=== PATIENT | female | born 1955 | race Caucasian/White ===

== ENCOUNTER 2017-05-30 16:37 | Inpatient (IN) | payer OTHER ==
[~2017-05-30] VITALS: Ht 157.4 cm; Wt 90.7 kg
--- NOTE | ~2017-05-30 | PR ---
[place], [place] PROGRESS NOTE NAME: ANTOINETTE MILLER UNIT #: [id number] ROOM: 310 DOCTOR: PINKY MÉNDEZ MD BIRTHDATE: [birth year] DOS: 06/02/2017 CHIEF COMPLAINT: "I had a moment where I totally panicked, I was so worried about my daughter, I didn't know what to do." SUMMARY OF THE VISIT: The patient was interviewed in the dining area where she was eating. She stopped and engaged in conversation once again. She notes that she is having good and bad moments. The good seems to be steadily out growing the bad. However, she said she had a full blown panic attack in the middle of the evening when she got suddenly fixated on her daughter and was fearful that something had happened to her. She became so anxious she had to get her on the phone and even after talking to her; it did not console her mind. She had a little bit more difficulty sleeping last night, but overall does seem to be trending toward improvement with the new medication. MENTAL STATUS: She is alert and oriented. Mood does seem to be still depressed with anxious overtones, but she is improving. There is no gross psychosis. Memory is intact. PLAN: I will give her another 24 hours to adjust to these medicines before considering adjusting of the Vraylar any further, engage in individual and farr milieu activity with the plan to return home or to the least restrictive environment when psychiatrically stable. PINKY MÉNDEZ MD CM:PNTRANS [phone] PINKY MÉNDEZ MD 06/02/1719 interface
--- NOTE | ~2017-05-30 | PR ---
[place], [place] PROGRESS NOTE NAME: ANTOINETTE MILLER UNIT #: [id number] ROOM: 310 DOCTOR: PINKY MÉNDEZ MD BIRTHDATE: [birth year] DOS: 06/01/2017 CHIEF COMPLAINT: "I felt like the veil lifted but it came back again." SUMMARY OF THE VISIT: The patient was interviewed in her room. She was sitting on the bed and she engaged readily in conversation. She reports that she does feel dramatically better since yesterday and that the medication changes that I made were positive. She felt like the bill lifted when she woke up and she was a new person at least until after breakfast when she felt a little bit more down in the dumps and sad and was fearful that the depression really is not going to ever get better. She convincingly denies medication side effects, stating that she has tolerated the medicines well. She was a little hesitant when I made to switch off of the Stelazine to the Vraylar, but I reiterated the differences between the medicines and what I was hoping to achieve and she nodded in approval. MENTAL STATUS: She is alert and oriented. Mood does seem to be trending towards euthymia. Affect is more appropriate. There are no symptoms of hypomania or nathaly. There are no overt auditory or visual hallucinations. No delusions, no paranoia. Short, intermediate, and long-term memory are intact. PLAN: I will increase the Vraylar from 1.5-3 mg at bedtime. Continue the Cymbalta and the Xanax, continue to engage in individual and farr milieu activity with the plan to return to the least restrictive environment when stable. PINKY MÉNDEZ MD CM:PNTRANS 8 [phone] PINKY MÉNDEZ MD 06/01/17929 interface
--- NOTE | ~2017-05-30 | DS ---
[place], [place] DISCHARGE SUMMARY NAME: [id number] UN[facility] #: [id number] ROOM: 310 DOCTOR: PINKY MÉNDEZ MD BIRTHDATE: [birth year] DOS: 06/06/2017 CHIEF COMPLAINT: "I don't think I am ever going to get well again." HISTORY OF PRESENT ILLNESS: This is a 61-year-old white female known to me from her previous outpatient work in [place], [place] as well as a consult at [facility]. The patient has been finding herself increasingly more depressed and anxious. One of the major triggers is the fact that her ex- to whom she had been for 21 years, suddenly. She reports that after this, she just fell into a deep depression. She was not continuity disturbance, gericare aide awakening, anergia, anhedonia, hopeless, helpless feelings, crying spells, and inability to cope. Additionally, her outpatient nurse practitioner attempted to switch her unsuccessfully from Xanax to Klonopin, which caused her anxiety level to raise very high. I had tried a similar attempt when I first met the patient and it too was met with worsening of her symptomatology. She was admitted now to rule out organic factors and attempt to stabilize on medication, returning home when stable. PAST MEDICAL HISTORY: Remarkable for asthma, hypertension, GERD, hyperlipidemia, hypothyroidism, neuropathy and obesity. SUMMARY OF HOSPITAL COURSE: The patient was admitted to the unit where her vitamin D level was found to be low on admission screening laboratory examinations at 15.7. She was started on vitamin D 50,000 international units weekly. Additionally, her Cymbalta, which was at 60 mg a day, was increased to 90 and ultimately to 60 mg twice daily. It was felt that the Stelazine that she was on for anxiety was no longer beneficial and in fact was causing both upper and lower extremity tremor. Stelazine was discontinued in lieu of Vraylar, which was started at 1.5 mg at bedtime. It was increased to 3 mg at bedtime and maintained there, but then she continued to complain of increased mood lability, depression and poor sleep. Ultimately, the Vraylar was maximized to its total highest dose of 6 mg at bedtime with good results. Rozerem was added as a nonaddicting sleep aid later in her stay. With this combination of medications, the patient returned to baseline. She was sleeping through the night. She was waking up refreshed. She was engaging in individual and farr milieu activities and interacting appropriately both with staff and other patients. She convincingly denied medication side effects. She convincingly denied suicidal thoughts, homicidal thoughts or any self-injurious thoughts as well as denying sedation, somnolence, extrapyramidal symptoms or tardive dyskinesia. The patient had improved sufficiently to return home with her daughter. She will have followup then with Jean[facility]. MENTAL STATUS AT DISCHARGE: The patient is alert and oriented to person, place, and time. Mood was euthymic. Affect appropriate. There was no symptom suggestive of hypomania or nathaly. There were no overt auditory or visual hallucinations. No delusions, no paranoia. Short, intermediate, and long-term memory for the most part were intact. FINAL DIAGNOSES: Bipolar type 2 and panic disorder along with borderline [place], [place] DISCHARGE SUMMARY NAME: ANTOINETTE MILLER [facility] #: [id number] UNIT #: [id number] ROOM: 310 DOCTOR: PINKY MÉNDEZ MD BIRTHDATE: [birth year] personality disorder. PLAN: The patient's prescriptions have been printed and will be sent with her. She is returning home with her daughter. She will have followup with Jeaneth Bhatti at [facility]. PINKY MÉNDEZ MD CM:DISCHFLORIDALMA [id number] PINKY MÉNDEZ MD 06/06/17 1232 interface
--- NOTE | ~2017-05-30 | PR ---
[place], [place] PROGRESS NOTE NAME: ANTOINETTE MILLER UNIT #: [id number] ROOM: 310 DOCTOR: PINKY MÉNDEZ MD BIRTHDATE: [birth year] DOS: 06/05/2017 CHIEF COMPLAINT: "I am feeling better, but I didn't sleep last night." SUMMARY OF THE VISIT: The patient was interviewed in her room where she was sitting on the bed. She engaged readily in conversation and did report that she tolerated the increase in the Vraylar well. She did not sleep well at night, but does state that she is feeling better from a mood perspective. She has also noted that the tremor in her upper and lower extremities that was so prominent while on the Stelazine has lessened considerably. She did request something as a sleep aid. She began to process with me discharge plans and does seem to be trending in an improved direction. MENTAL STATUS: She is alert and oriented. Mood does seem to be strongly trending towards euthymia. Affect is much more appropriate. There is no symptom suggestive of nathaly or hypomania. There are no overt auditory or visual hallucinations. No delusions, no paranoia. Short, intermediate and long-term memories are fully intact. PLAN: I will add Rozerem 8 mg at bedtime as a non-addictive sleep aid. We will continue her current psychotropic regimen, continue to engage her in individual and farr milieu activity with the ultimate plan to discharge back to the community and have followup at [facility] with Caitlin Bhatti. PINKY MÉNDEZ MD CM:PNTRANS [phone] PINKY MÉNDEZ MD 06/05/17 1025 interface
--- NOTE | ~2017-05-30 | WRIGHTHP ---
[place], [place] PATIENT HISTORY AND PHYSICAL EXAM NAME: ANTOINETTE MILLER UNIT #: [id number] ROOM: 310 DOCTOR: PINKY MÉNDEZ MD BIRTHDATE: [birth year] DOS: 05/30/2017 CHIEF COMPLAINT: "I don't think I am ever going to get well again." HISTORY OF PRESENT ILLNESS: This is a 61-year-old white female known to me from previous outpatient work in [place], [place]. She presented from [facility] where she presented with a complaint of increased depression with fleeting suicidal ideas. The patient has been decompensating lately, made worse by the fact that her ex- to whom she had been for 21 years suddenly. She endorsed multiple neurovegetative symptoms including poor sleep and appetite, anergia, anhedonia, hopeless, helpless feelings, crying spells, and inability to cope. Most recently, her outpatient psychiatric provider, a nurse practitioner at [facility], confronted her on her benzodiazepine use and abuse. She made an attempt to switch the patient from Xanax to Klonopin, which per the patient's report was a devastating switch. She noticed that her anxiety level peaked and she was not able to function. This ultimately led to a hospitalization at [facility] where I did have an opportunity to see her. I had once before in the distant past tried to do a similar switch and the results were very unsuccessful. She is very much Xanax dependence unfortunately and needs to be kept on a short least with monitoring the use of these benzos. She is admitted now to restabilize on medication, to engage in individual and farr milieu activity with the ultimate plan to return home when psychiatrically stable. PAST MEDICAL HISTORY: Remarkable for asthma, hypertension, GERD, hyperlipidemia, hypothyroidism, neuropathy and obesity. MENTAL STATUS: She is alert and oriented. She sobbed and cried throughout the entire interview, very nihilistic, stating that she does not think she will ever get well again. She endorsed the above neurovegetative symptoms. There was some mood lability noted and she tended to be somewhat circumstantial in her presentation. There were no overt auditory or visual hallucinations, however, and memory for the most part is intact. DIAGNOSES: Bipolar type 2 and personality disorder, not otherwise specified. PLAN: I have already increased her Cymbalta from 60 to 90 mg a day. I will now increase it further, but change it to 60 mg b.i.d. I will increase her Xanax to 1 mg t.i.d. Her vitamin D level upon admission was low at 15.7, so I will supplement with vitamin D 50,000 International Units every . I will discontinue her Stelazine, even though she notes that this helps with some of her anxiety and switch her to Vraylar 1.5 at bedtime. The Vraylar should impact positively on her mood and decrease some of her mood lability while making the antidepressant work better. I have instructed the nursing staff to contact her outpatient provider and pharmacy. Initially, the report was she was receiving multiple benzodiazepines. I have already confronted a lean on the need to have all of these prescriptions canceled so that she is not mixing benzos. We will share all of this information with her outpatient provider upon discharge then from the hospital. Engage in individual and farr milieu activity, returning to the least restrictive environment when psychiatrically stable. [place], [place] PATIENT HISTORY AND PHYSICAL EXAM NAME: ANTOINETTE MILLER UNIT #: [id number] ROOM: 310 DOCTOR: PINKY MÉNDEZ MD BIRTHDATE: [birth year] PINKY MÉNDEZ MD CM:HISPHYS:PATIENT HISTORY AND PHYSICAL EXAMINATION [id number] PINKY MÉNDEZ MD 05/31/17 1011 interface
--- NOTE | ~2017-05-30 | PR ---
[place], [place] PROGRESS NOTE NAME: ANTOINETTE MILLER UNIT #: [id number] ROOM: 310 DOCTOR: PINKY MÉNDEZ MD BIRTHDATE: [birth year] DOS: 06/04/2017 CHIEF COMPLAINT: "I did sleep better, I am starting to feel better." SUMMARY OF THE VISIT: The patient was interviewed in her room. She was resting quietly in bed after eating breakfast. She reported that the slight increase in the Vraylar to 4.5 mg last night did aid her sleep and she did not wake up feeling somnolent or lightheaded in anyway. She is concerned that she will be returning to a very stressful environment and requested that I adjust medicines with that in mind. I did suggest to her that we bring the Vraylar up to 6 mg, maxing out its potential benefits and she agreed. She convincingly denies any medication side effects and reports that she is working on coping mechanisms so that she is able to handle the stress better. MENTAL STATUS: She is alert and oriented. Mood does seem to be significantly trending towards euthymia. Affect is much more appropriate. There is no nathaly or hypomania. There are no overt auditory or visual hallucinations. No delusions, no paranoia. Short, intermediate and long-term memories are fully intact. PLAN: I will increase the Vraylar from 4.5 mg at bedtime to 6 mg at bedtime, continue to engage in individual and farr milieu activity with the ultimate plan to discharge home when psychiatrically stable. PINKY MÉNDEZ MD CM:PNTRANS [phone] PINKY MÉNDEZ MD 06/04/17 0915 interface
--- NOTE | ~2017-05-30 | PR ---
[place], [place] PROGRESS NOTE NAME: ANTOINETTE MILLER UNIT #: [id number] ROOM: 310 DOCTOR: PINKY MÉNDEZ MD BIRTHDATE: [birth year] DOS: 06/03/2017 CHIEF COMPLAINT: "I am up and I and down, I am on a roller coaster." SUMMARY OF THE VISIT: The patient was interviewed in her room. She was resting in bed, but awoke easily and engaged in conversation. She reports she continues to have ups and downs. She feels good for a while and is hopeful that the depression is finally lifting and then suddenly out of the blue she will dip back down into a deep depression. I did educate her as to the process of getting well and how it is one of more ups and downs with general trends toward improvement and she nodded in approval. On a negative note, the patient did report that she is not sleeping through the night and is tossing and turning more often than not. She denies any medication side effects. MENTAL STATUS: She is alert and oriented. Mood does seem to be depressed with anxious overtones. There is no nathaly or hypomania. There are no auditory or visual hallucinations. Memory is intact. PLAN: I will increase Vraylar from 3 mg at night to 4.5 mg at night, support and monitor and engage in individual and farr milieu treatment. PINKY MÉNDEZ MD CM:PNTRANS [phone] PINKY MÉNDEZ MD 06/03/172132 interface
[2017-05-30] MEDS ORDERED: XANAX0.5 MG PO (17:05)
[2017-05-30] MEDS ORDERED: VISTARIL25 MG PO (17:06)
[2017-05-30] MEDS ORDERED: TRIFLUOPERAZINE2 M1 PO (17:12)
[2017-05-30] MEDS ORDERED: TRAZODONE50 MG PO (17:13)
[2017-05-30] MEDS ORDERED: ZOCOR20 MG PO (17:16)
[2017-05-30] MEDS ORDERED: SINGULAIR10 M1 PO (17:16)
[2017-05-30] MEDS ORDERED: POTASSIUM CHLO10 MEQ PO (17:17)
[2017-05-30] MEDS ORDERED: OMEPRAZOLE40 MG PO (17:18)
[2017-05-30] MEDS ORDERED: ZESTRIL,PRINIVIL5 MG PO (17:19)
[2017-05-30] MEDS ORDERED: Lopressor25 MG PO (17:19)
[2017-05-30] MEDS ORDERED: LASIX20 MG PO (17:20)
[2017-05-30] MEDS ORDERED: NEURONTIN300 MG PO (17:20)
[2017-05-30] MEDS ORDERED: CYMBALTA60 MG PO (17:21)
[2017-05-30] MEDS ORDERED: CETIRIZINE5 MG PO (17:22)
[2017-05-30] MEDS ORDERED: TESSALON PERLE100 MG PO (17:23)
[2017-05-30] MEDS ORDERED: BUSPIRONE HCL10 MG PO (17:23)
[2017-05-30] MEDS ORDERED: ALBUTEROL4 MG PO (17:24)
[2017-05-30 17:49] VITALS: BP 136/84
[2017-05-30 19:13] LABS: BILIRUBIN NEGATIVE (NEGATIVE); BLOOD NEGATIVE (NEGATIVE); CLARITY CLEAR (CLEAR); COLOR YELLOW (YELLOW); GLUCOSE NEGATIVE (NEGATIVE); KETONE NEGATIVE (NEGATIVE); LEUKO ESTERASE NEGATIVE (NEGATIVE); NITRITE NEGATIVE (NEGATIVE); PH 5.5 (5.0-9.0); SPECIFIC GRAVITY <= 1.005 (1.005-1.030); UROBILINOGEN 0.2 E.U./dl (0.2-1.0)
[2017-05-30 19:21] LABS: BACTERIA 4+
[2017-05-30 20:00] VITALS: BP 114/42
[2017-05-31 06:55] LABS: BASO % 0.7 % (0.0-1.0); EOS % 1.1 % (1.0-4.0); HEMATOCRIT 37.5 % (37.0-47.0); HEMOGLOBIN 12.3 g/dl (12.0-16.0); LYMPH # 0.9 10*3/uL (1.3-4.4); LYMPH % 33.6 % (27.0-41.0); MEAN CELL VOLUME 87.4 fl (81.0-99.0); MEAN CORPUSCULAR HGB 28.7 pg (27.0-31.0); MEAN CORPUSCULAR HGB CONC 32.8 g/dl (33.0-37.0); MONO # 0.4 10*3/uL (0.1-1.0); MONO % 15.7 % (3.0-9.0); NEUT # 1.4 10*3/uL (2.3-7.9); NEUT % 48.9 % (47.0-73.0); PLATELET COUNT AUTOMATED 131 10*3/uL (130-400); RED BLOOD COUNT 4.29 10*6/uL (4.10-5.10); RED CELL DISTRI WIDTH 13.5 % (0-14.5); WHITE BLOOD COUNT 2.8 10*3/uL (4.8-10.8)
[2017-05-31 07:17] LABS: ALBUMIN 3.1 gm/dl (3.1-4.5); BUN 10 mg/dl (7-24); CHLORIDE 105 mmol/L (98-107); POTASSIUM 3.8 mmol/L (3.5-5.1); SODIUM 139 mmol/L (136-145)
[2017-05-31 07:30] LABS: ALKALINE PHOSPHATASE 71 U/L (45-117); CHOLESTEROL 132 mg/dL (<200); CREATININE 0.97 mg/dL (0.55-1.02); HDL CHOLESTEROL 49 mg/dl (40-60); LDL CHOLESTEROL 65 mg/dL (9-159); SGOT/AST 26 IU/L (3-35); SGPT/ALT 23 U/L (12-78); THYROID STIM HORMONE (HS) 0.593 uIU/ml (0.358-4.75); TOTAL PROTEIN 6.3 gm/dL (6.4-8.2); TRIGLYCERIDES 88 mg/dl (<150); VLDL CHOLESTEROL 18 mg/dL (6-40)
[2017-05-31 07:36] VITALS: BP 118/62
[2017-05-31 07:49] LABS: VITAMIN D, 25-HYDROXY 15.7 ng/mL (30-100)
[2017-05-31 20:47] VITALS: BP 126/70
[2017-06-01 07:39] VITALS: BP 122/647
[2017-06-01 20:00] VITALS: BP 119/76
[2017-06-02 08:12] VITALS: BP 122/68
[2017-06-02 20:00] VITALS: BP 111/72
[2017-06-03 07:05] LABS: BASO % 0.2 % (0.0-1.0); EOS # 0.2 10*3/uL (0.0-0.4); EOS % 5.3 % (1.0-4.0); HEMATOCRIT 40.4 % (37.0-47.0); HEMOGLOBIN 13.1 g/dl (12.0-16.0); LYMPH % 44.9 % (27.0-41.0); MEAN CELL VOLUME 88.4 fl (81.0-99.0); MEAN CORPUSCULAR HGB 28.7 pg (27.0-31.0); MEAN CORPUSCULAR HGB CONC 32.4 g/dl (33.0-37.0); MEAN PLATELET VOLUME 10.1 fl (9.6-12.3); MONO # 0.3 10*3/uL (0.1-1.0); NEUT # 1.9 10*3/uL (2.3-7.9); NEUT % 42.4 % (47.0-73.0); PLATELET COUNT AUTOMATED 167 10*3/uL (130-400); RED BLOOD COUNT 4.57 10*6/uL (4.10-5.10); RED CELL DISTRI WIDTH 13.6 % (0-14.5); WHITE BLOOD COUNT 4.5 10*3/uL (4.8-10.8)
[2017-06-03 07:59] VITALS: BP 104/81
[2017-06-03 20:00] VITALS: BP 109/72
[2017-06-04 09:05] VITALS: BP 110/76
[2017-06-04 20:00] VITALS: BP 115/82
[2017-06-05 07:53] VITALS: BP 112/70
[2017-06-05 21:20] VITALS: BP 116/62
[2017-06-06 07:58] VITALS: BP 113/67
[2017-06-06] MEDS ORDERED: ROZEREM8 MG PO (12:05)
[2017-06-06] MEDS ORDERED: DULOXETINE HCL60 MG PO (12:05)
[2017-06-06] MEDS ORDERED: BUSPIRONE HCL10 MG PO (12:05)
[2017-06-06] MEDS ORDERED: VRAYLAR6 MG PO (12:05)
[2017-06-06] MEDS ORDERED: ATARAX,VISTARIL50 MG PO (12:05)
[2017-06-06] MEDS ORDERED: AMINOPHYLLIN200 MG PO (13:59)
[2017-06-06] MEDS ORDERED: VITAMIN D5000 UNI1 PO (13:59)
== END 2017-06-06 15:51 | disposition home or self-care (01) | DRG 885 ==
LOC: 3N 16:37
PROVIDERS: Internal Medicine; Psychiatry & Neurology Psychiatry
DX: F31.81 Bipolar II disorder (principal); R45.851 Suicidal ideations; E66.01 Morbid (severe) obesity due to excess calories; N39.0 Urinary tract infection, site not specified; F60.3 Borderline personality disorder; G62.9 Polyneuropathy, unspecified; J45.909 Unspecified asthma, uncomplicated; I10 Essential (primary) hypertension; K21.9 Gastro-esophageal reflux disease without esophagitis; E78.5 Hyperlipidemia, unspecified; F41.0 Panic disorder [episodic paroxysmal anxiety]; E03.9 Hypothyroidism, unspecified; M54.5 Low back pain; G89.29 Other chronic pain; Z90.710 Acquired absence of both cervix and uterus; Z90.49 Acquired absence of other specified parts of digestive tract; Z98.891 History of uterine scar from previous surgery; Z82.49 Family history of ischemic heart disease and other diseases of the circulatory system; Z80.1 Family history of malignant neoplasm of trachea, bronchus and lung; Z88.6 Allergy status to analgesic agent; Z88.5 Allergy status to narcotic agent; Z79.899 Other long term (current) drug therapy; Z68.36 Body mass index [BMI] 36.0-36.9, adult

== ENCOUNTER 2017-08-29 20:02 | Inpatient (IN) | payer OTHER ==
[~2017-08-29] VITALS: Ht 172.7 cm; Wt 97.5 kg
--- NOTE | ~2017-08-29 | PR ---
[place], [place] PROGRESS NOTE NAME: ANTOINETTE MILLER UNIT #: [id number] ROOM: 315 DOCTOR: PINKY MÉNDEZ MD BIRTHDATE: [birth year] DOS: 08/31/2017 CHIEF COMPLAINT: "I am just so scared, my meds do not seem to be working." SUMMARY OF THE VISIT: The patient was interviewed in the quiet room. She reported that she takes her Xanax at home, slightly different than she does here that she usually gets up early and takes the first one around 6 or 7 a.m., the second one around 2:00 p.m. and the last one around 11:00 p.m. I told her I can adjust her timing here to meet her needs. She did report that she is tolerating the medicines here well. She is hopeful that being here and having a chance to be away from stressors will go a long way in helping her build her strength back up and control her depression. MENTAL STATUS: She is alert and oriented with some time gaps. Mood does seem to be slightly less depressed and she has been a little more euthymic. There is no nathaly, hypomania or psychosis. Short-term memory has mild gaps, otherwise she is intact. PLAN: I will go ahead and make those timing changes with her Xanax. Continue to engage her in individual and farr milieu activity, returning to the least restrictive environment when stable. PINKY MÉNDEZ MD CM:PNTRANS [phone] PINKY MÉNDEZ MD 08/31/17 1254 interface
--- NOTE | ~2017-08-29 | PR ---
[place], [place] PROGRESS NOTE NAME: ANTOINETTE MILLER UNIT #: [id number] ROOM: 315 DOCTOR: JO-ANN HERNANDEZ DO BIRTHDATE: [birth year] DOS: 09/06/2017 CHIEF COMPLAINT: "I still want to punch someone in the face." SUMMARY OF VISIT: The patient is a 62-year-old white female who was admitted to [facility]. She has a past medical history of major depression, which is recurrent and severe. She is currently on hospital day #8 and she continues to have persistent anxiety: The patient was interviewed in the dining room. She reports sleeping better last night because it was quiet; however, her anxiety level remains the same. She denied side effects from the current psychotropic regimen; however, she does admit to having crying episodes and feeling irritable. She reports that her sister is getting surgery today; however, we clarified with nursing staff that her sister was having a doctor's visit and not surgery today. The patient was informed. The patient today is complaining of leg pain and concern for weight gain. Upon chart review, the patient's weight was 97.522 kilograms, however, no previous records are available at this time for comparison. The patient did admit to having gastric bypass surgery in 1988 to the hospitalist resident upon consult on admission. She did not mention this to us and it is not present in her records from [facility]. This has been added to her surgical history: The patient is complaining of leg pain and she was instructed to bring this up with the Internal Medicine hospitalist team who will be managing her pain. She voiced understanding. MENTAL STATUS EXAMINATION: The patient is alert and oriented to person, place and time. Her mood is anxious. Her affect is more appropriate today. Her short term memory is intact. She is more irritable today, however, she is cooperative with exam. PLAN: 1. Gabapentin level collected on 09/03/2017 revealed a therapeutically low value at 3.0. Gabapentin to be increased to 400 mg q.i.d. 2. We have increased hydroxyzine to 100 mg q.i.d. 3. We are currently still awaiting response from the fax sent to [facility] for medical records from 2015 to 2017. However, upon review of chart, the patient was seen at [facility] the day prior to admission and she reported feeling overwhelmed as she was taking care of her grandchildren all day and it was too much for her. She has not shared this information with us. The patient's concern for weight gain is likely associated to her past medical history of gastric bypass surgery, which has been added to her surgical history. DISPOSITION: The patient to be discharged likely tomorrow, 09/07/2017 pending on medical and psychiatric status. We will continue to engage the patient in individual and farr milieu activity, returning to the least restrictive environment when psychiatrically stable. Jo-Ann Hernandez DO [place], [place] PROGRESS NOTE NAME: ANTOINETTE MILLER UNIT #: [id number] ROOM: [facility] DOCTOR: JO-ANN HERNANDEZ DO BIRTHDATE: [birth year] PINKY MÉNDEZ MD CM:PNCAT [id number] JO-ANN HERNANDEZ DO 09/06/17 1230 interface
--- NOTE | ~2017-08-29 | PR ---
[place], [place] PROGRESS NOTE NAME: ANTOINETTE MILLER UNIT #: [id number] ROOM: 315 DOCTOR: JO-ANN HERNANDEZ DO BIRTHDATE: [birth year] DOS: 09/07/2017 CHIEF COMPLAINT: "I feel like I am inching up, but I am still not happy." SUMMARY OF VISIT: The patient is a 62-year-old white female who was admitted to the [facility], currently on hospital day #9 with persistent feelings of depression and anxiety. The patient has a past medical history of recurrent and severe major depression. She was interviewed today in the dining room. She was tearful during the encounter. She reports feeling sad that her children have not come to visit her. She also mentioned her who passed earlier this year. She was sad about her children, not coming to visit her as she had perceived they would prior to admission. She does report feeling dizzy today. She also stated "I feel so desperate and I feel heavy." She is concerned about her sister who is scheduled to have an upcoming surgery. She believes that the medication is not working, but is willing to stay over the weekend for persistent treatment. We reassured her that we would be adjusting her medication and that the medication may take time to take full effect. She voiced understanding. MENTAL STATUS EXAMINATION: The patient is alert and oriented to person, place and time. Her mood is very anxious and tearful. Her affect is withdrawn. Her short term memory is intact. She is sad and tearful throughout the examination. PLAN: 1. We have increased her gabapentin from 400 mg p.o. q.i.d. to 600 mg p.o. q.i.d. 2. No other changes to be made to psychotropic regimen at this time. 3. Disposition: The patient likely to be discharged on 09/10/2017 back to home, pending on medical and psychiatric status. We will continue to engage the patient in individual and farr milieu activity, returning to the least restrictive environment when psychiatrically stable. Jo-Ann Hernandez DO [place], [place] PROGRESS NOTE NAME: ANTOINETTE MILLER UNIT #: [id number] ROOM: [facility] DOCTOR: JO-ANN HERNANDEZ DO BIRTHDATE: [birth year] PINKY MÉNDEZ MD CM:ANGELA [phone] JO-ANN HERNANDEZ DO 09/07/172140 interface
--- NOTE | ~2017-08-29 | WRIGHTHP ---
[place], [place] PATIENT HISTORY AND PHYSICAL EXAM NAME: ANTOINETTE MILLER UNIT #: [id number] ROOM: 315 DOCTOR: PINKY MÉNDEZ MD BIRTHDATE: [birth year] DOS: 08/30/2017 INITIAL PSYCHIATRIC EVALUATION CHIEF COMPLAINT: "I have just been all over the place, my moods are horrible." HISTORY OF PRESENT ILLNESS: This is a 62-year-old white female well known to me from previous admissions to the [facility] as well as my previous practice at [place]. The patient was sent here by her outpatient practitioner, Singh Morales, because the patient has had a significant decline in mental status. The patient reports feeling increasingly depressed as well as irritable and on edge. She also notes her anxiety level is high and she has a rapid heart rate, difficulty concentrating, shortness of breath. She also notes some delusions and paranoia and fears that she will do something bad if she does not get help as soon. She recently was at [place] after taking four times the amount of Cymbalta that she was supposed to and has had multiple [facility] for similar behavior. She is admitted now to rule out organic factors, to stabilize on medication, returning to the least restrictive environment when stable. PAST MEDICAL HISTORY: Remarkable for asthma, hypertension, GERD, hyperlipidemia, hypothyroidism, morbid obesity, neuropathy, allergic rhinitis and vitamin D deficiency as well as a long history of bipolar disorder. SOCIAL HISTORY: The patient does not currently drink, smoke or use illicit drugs. ALLERGIES: She lists allergies to ASPIRIN, CODEINE, DROPERIDOL and FENTANYL. STRENGTHS: The patient is ambulatory with good verbal skills and a good sense of humor. MENTAL STATUS: The patient is alert and oriented to person, place and time. Mood does seem to be fairly on edge and irritable with depression and paranoia noted. There are no auditory or visual hallucinations. Memory for the most part is intact. PLAN: I will go ahead and discontinue her Zanaflex at night and utilize Zanaflex 4 mg 4 times a day to augment the effectiveness of the Xanax. I did already increase her BuSpar to 10 mg 4 times a day to combat depression as well as to combat anxiety. I have maintained her on Vraylar 6 mg at bedtime and changed her Remeron to be 22.5 mg at bedtime. We will continue to engage her in individual and farr milieu activity, returning to the least restrictive environment when stable. ____ [place], [place] PATIENT HISTORY AND PHYSICAL EXAM NAME: ANTOINETTE MILLER UNIT #: [id number] ROOM: [facility] DOCTOR: PINKY MÉNDEZ MD BIRTHDATE: [birth year] PINKY MÉNDEZ MD CM:HISPHYS:PATIENT HISTORY AND PHYSICAL EXAMINATION [id number] PINKY MÉNDEZ MD 08/30/17 1151 interface
--- NOTE | ~2017-08-29 | DS ---
[place], [place] DISCHARGE SUMMARY NAME[facility]ILL[id number] UN[facility] #: [id number] ROOM: 315 DOCTOR: PINKY MÉNDEZ MD BIRTHDATE: [birth year] DOS: 09/12/2017 CHIEF COMPLAINT: "I have been all over the place, my moods are horrible." HISTORY OF PRESENT ILLNESS: This is a 62-year-old white female known to me from previous admissions to the [facility] as well as my previous practice at [place]. The patient was sent here by her outpatient practitioner, Singh Morales because the patient has had a significant decline in mental status. During this period, she reports feeling a combination of depression as well as irritability and being on edge. She also endorses high anxiety level that is constant and includes multiple autonomic nervous system symptoms including rapid heart rate, difficulty concentrating and shortness of breath. She also notes some paranoia and irrational fears and does not think that life will be able to ever get better. She recently was at [facility] after taking four times the amount of Cymbalta that she was supposed to and has had multiple admissions psychiatrically of late for similar behavior. She is admitted now to rule out any organic factors, to stabilize on medication, returning to the least restrictive environment when stable. PAST MEDICAL HISTORY: Remarkable for asthma, hypertension, GERD, hyperlipidemia, hypothyroidism, morbid obesity, neuropathy, allergic rhinitis, vitamin D deficiency as well as a lengthy history of bipolar disorder. The patient does not currently drink alcohol, smoke cigarettes or use illicit substances. STRENGTHS: The patient is ambulatory, with good verbal skills and is relatively healthy with a good sense of humor. SUMMARY OF THE HOSPITAL COURSE: The patient was admitted to the unit where initially I tried her on Zanaflex to augment the Xanax. When this did not work, I switched her to Vistaril and brought the dose to 100 mg 4 times daily. I did increase her BuSpar to 10 mg 4 times daily and eventually to 15 mg 4 times daily. I began at the latter part of her stay to gradually titrate up the Neurontin. This was after I had I changed her Xanax to 0.5 mg 4 times daily. Her previous dose had been 1 mg 3 times daily. I attempted to give everything 4 times a day, so each medication would augment the other. I brought her Neurontin then from 300 four times a day to 400 to 600 and then ultimately 800 mg 4 times daily. Vraylar was maintained at 6 mg at bedtime and she was re-challenged with Remeron and the dose was stabilized at 22.5 mg at bedtime. It became very evident towards the latter part of her stay that she had become so fixated on some of the rules and regulations on the unit that it was interfering with her ability to get well. She could not think past these issues and took each of these personally. I did encourage her to return home and see how she feels with the medication, believing that once in her own environment she will feel much better. On the last day of her stay, she was much more bright and much more cheerful and was able to engage in therapy and voiced positive plans for the future. She convincingly denied suicidal thoughts, homicidal thoughts or any self-injurious thoughts while likewise, denying any medication side effects. [place], [place] DISCHARGE SUMMARY NAME: ANTOINETTE MILLER UNIT #: [id number] ROOM: 315 DOCTOR: PINKY MÉNDEZ MD BIRTHDATE: [birth year] MENTAL STATUS AT DISCHARGE: She is alert and oriented with some mild time gaps. Mood does seem to be trending towards euthymia. Affect is more appropriate. There is no nathaly, hypomania or psychosis. Memory for the most part is intact. DIAGNOSES: Major depression, recurrent, severe; dysthymic disorder. PLAN: Her prescriptions have been e scribed to the [facility] in [place]. She will have followup at [facility] by Singh Morales. She is medically and psychiatrically stable. Her biopsychosocial needs are adequately being met by family, the community at large and by [facility]. PINKY MÉNDEZ MD CM:DISCHARG 1108 PINKY MÉNDEZ MD 09/12/17 1215 interface
--- NOTE | ~2017-08-29 | PR ---
[place], [place] PROGRESS NOTE NAME: ANTOINETTE MILLER UNIT #: [id number] ROOM: 315 DOCTOR: JO-ANN HERNANDEZ DO BIRTHDATE: [birth year] DOS: 09/04/2017 CHIEF COMPLAINT: "I have questions about my medications." SUBJECTIVE: The patient is a 62-year-old white female who was admitted to the [facility] for major depression, recurrent, severe, currently on hospital day #6, with persistent anxiety. The patient was interviewed in a quiet room. Today, patient is concerned about her medication regimen. She had her medication regimen printed on a page for her in order to reorient her and to reduce her anxiety regarding when dosages would be administered. Per nursing staff, patient was exhibiting staff splitting and telling peers that she was not receiving her medications, which was not true. The patient was also concerned about possible weight gain and asked if her medications could be causing the side effect. The patient continues to show persistent anxiety about medication regimen. We attempted to explain to the patient that she is receiving all doses of medications as scheduled and she expressed concern for her to be able to continue this regimen at home. We voiced her understanding and said we would work with the hospitalist team to make her regimen of medications at home as simple as possible for her. MENTAL STATUS: The patient is alert and oriented with increased anxiety. Mood is still anxious. The patient continues to have mood liability and impulsivity. Short-term memory continues to have some time gaps noted. PLAN: Cogentin was discontinued this morning. The patient is started on Artane 2 mg 3 times daily. We will provide the patient with an updated printout of her current medications to help reorient her of her medication regimen. Staff has been encouraged to work in pairs and to continue to engage with her to avoid significant staff splitting. We will continue to engage the patient in individual and farr milieu activity, returning to the least restrictive environment when psychiatrically stable. DISPOSITION: The patient to be discharged likely tomorrow, Sunday, September 05 or September 06. Jo-Ann Hernandez DO [place], [place] PROGRESS NOTE NAME: ANTOINETTE MILLER UNIT #: [id number] ROOM: [facility] DOCTOR: JO-ANN HERNANDEZ DO BIRTHDATE: [birth year] PINKY MÉNDEZ MD CM:PNCAT [id number] JO-ANN HERNANDEZ DO 09/04/17 2011 interface
--- NOTE | ~2017-08-29 | PR ---
[place], [place] PROGRESS NOTE NAME: ANTOINETTE MILLER UNIT #: [id number] ROOM: 315 DOCTOR: PINKY MÉNDEZ MD BIRTHDATE: [birth year] DOS: 09/10/2017 CHIEF COMPLAINT: "I don't think I am any better. I am still as depressed and as anxious, why ain't I getting any better." SUMMARY OF THE VISIT: The patient was interviewed in the dining area where she had already completed her breakfast. She engaged readily in conversation, reporting that she is still feeling depressed and anxious. She requested that I increase her Xanax more, which I told her that this was just done and I would not do so again. I did suggest increasing her Neurontin, which she agreed to. We explored other ways in which she can cope. She is somewhat help rejecting along . MENTAL STATUS: She is alert and oriented. Mood does still seem to be depressed with some anxious overtones. There is no nathaly or hypomania. There are no gross psychotic symptoms. Memory for the most part is intact. PLAN: I will increase Neurontin to 800 mg q.i.d. and recheck a level in the morning. The patient does have a UTI which could be contributing to some of her symptomatology. I will make certain that the hospitalists are aware and aggressively treat. PINKY MÉNDEZ MD CM:PNTRANS [phone] PINKY MÉNDEZ MD 09/10/17 1003 interface
--- NOTE | ~2017-08-29 | PR ---
[place], [place] PROGRESS NOTE NAME: ANTOINETTE MILLER UNIT #: [id number] ROOM: 315 DOCTOR: JO-ANN FERRELL DO BIRTHDATE: [birth year] DOS: 09/11/2017 CHIEF COMPLAINT: "I feel like a roller coaster. I am scared to go home. I'm afraid I am going to get mad." SUMMARY OF VISIT: The patient is a 62-year-old white female who was admitted to [facility], currently on hospital day #13 with persistent feelings of depression and anxiety. The patient has a past medical history of major depression: The patient was interviewed in the therapy room today. She was readily engaged with other residents in conversation. She did request to be interviewed in another room. At this time, the patient reported feeling anxious about being discharged. She reports she would like to be discharged to assisted living; however, we explained that she would not meet the criteria for assisted living as she is highly functioning. She voiced understanding and requested that her chart be sent to her nurse practitioner. We reported that a discharge summary would be provided to her nurse practitioner. The patient voiced understanding. The patient continues to be tearful whenever the topic of discharge planning is discussed. She continued to ask about her Neurontin, which we explained has been increased, so that it can reach therapeutic levels. The patient is currently being treated for UTI and the internal hospitalist team is treating this medical condition. The patient became tearful and we reassured her that we would assist her with discharge planning and encouraged her to continue participating in group. MENTAL STATUS EXAMINATION: The patient is alert and oriented to person, place and time. Mood seems to be anxious and depressed at times with tearfulness. No signs of nathaly or hypomania. No signs of auditory or visual hallucinations. Short-term memory and long-term memory are intact. PLAN: 1. No changes to current psychotropic medication regimen. 2. The patient was started on fosfomycin for urinary tract infection. Urine culture was positive for E. coli. This is being treated by the internal medicine hospitalist team. 3. Disposition, the patient likely to be discharged Sunday09/12/2017 to return home. We explained to the patient that social work will assist with discharge planning to see if other options were available; however, we recommended that she continue to follow up with her nurse practitioner. She voiced understanding and was in agreement with plan. Jo-Ann Ferrell DO [place], [place] PROGRESS NOTE NAME: ANTOINETTE MILLER UNIT #: [id number] ROOM: [facility] DOCTOR: JO-ANN FERRELL DO BIRTHDATE: [birth year] PINKY MÉNDEZ MD CM:ANGELA [phone] JO-ANN FERRELL DO 09/11/17 1324 interface
--- NOTE | ~2017-08-29 | PR ---
[place], [place] PROGRESS NOTE NAME: ANTOINETTE MILLER UNIT #: [id number] ROOM: 315 DOCTOR: JO-ANN HERNANDEZ DO BIRTHDATE: [birth year] DOS: 09/05/2017 CHIEF COMPLAINT: "Am I getting any new medications today?" SUMMARY OF VISIT: The patient is a 62-year-old white female who was admitted to the [facility] with a past medical history of major depression, recurrent, severe, currently on hospital day #7 with persistent anxiety. The patient was interviewed in the dining room. She continues to have persistent concerns about her medication regimen. She is preoccupied with her concern that her medications have changed. She has requested that we resume medications she was previously on, stating that those medications helped her sleep better. She does complain of difficulty sleeping last night and requesting adjustment in her medication to help her sleep today. We informed the patient that we would require a release of records to obtain her information from [facility] for her records from [phone]. The patient voiced understanding. She did not seem to be in any distress besides her concern for her medications. She voiced her understanding. MENTAL STATUS EXAMINATION: The patient is alert and oriented times 3. Her mood is appropriate. She is still exhibiting signs of anxiety. Her short-term memory seems to be intact. She is cooperative with exam. PLAN: 1. Awaiting response from [facility]. We have faxed an informed consent release, awaiting their response. 2. Gabapentin level was ordered on 09/03/2017, results are still pending. 3. Disposition, the patient to be discharged likely , September 06 or Sunday, September 07 depending on medical and psychiatric status. We will continue to engage the patient in individual and farr milieu activity, returning to the least restrictive environment when psychiatrically stable. Jo-Ann Hernandez DO [place], [place] PROGRESS NOTE NAME: ANTOINETTE MILLER UNIT #: [id number] ROOM: 315 DOCTOR: JO-ANN HERNANDEZ DO BIRTHDATE: [birth year] PINKY MÉNDEZ MD CM:ANGELA [phone] JO-ANN HERNANDEZ DO 09/05/17 1306 interface
--- NOTE | ~2017-08-29 | PR ---
[place], [place] PROGRESS NOTE NAME: ANTOINETTE MILLER UNIT #: [id number] ROOM: 315 DOCTOR: PINKY MÉNDEZ MD BIRTHDATE: [birth year] DOS: 09/01/2017 CHIEF COMPLAINT: "I am still feeling hopeless, I do not know if I will ever get better." SUMMARY OF THE VISIT: The patient was interviewed as she was sitting on her bed in her room. She engaged in lengthy conversation about her meds here. She does seem to be confused as she requested that I write her a prescription for Zyrtec here while she has already been receiving the Zyrtec as needed. I do not believe she is cognizant enough to remember exactly what meds she is getting. She swears that she has not gotten Remeron since she has been here, yet the order has been on the chart since day one. She continues to do a lot of staff splitting and tends to pit one staff against the other and is also very much salt finding in everyone's actions. MENTAL STATUS: She is alert and oriented with significant time gaps. Mood does seem to be slightly trending towards euthymia. Affect is more appropriate. She does endorse significant anxiety throughout the day, how much of this is a legitimate anxiety versus medication seeking is unclear. There are no gross psychotic symptoms or nathaly. Short term memory does have gaps. PLAN: I will go ahead and discontinue the Zanaflex in lieu of Trilafon 4 mg 3 times a day. In the past, she received a great deal of benefit from Stelazine, but developed some side effects from it. This is a less potent antipsychotic that is often times used for antianxiety. We will also suggest that staff start using a rick system given the fact that she is staff splitting and making false allegations towards staff. We will attempt at best to engage her in individual and farr milieu activities, returning then to the least restrictive environment when psychiatrically stable. PINKY MÉNDEZ MD CM:PNTRANS [id number] PINKY MÉNDEZ MD 09/01/17 1140 interface
--- NOTE | ~2017-08-29 | PR ---
[place], [place] PROGRESS NOTE NAME: ANTOINETTE MILLER UNIT #: [id number] ROOM: 315 DOCTOR: EMY DENNISON MD BIRTHDATE: [birth year] DOS: 09/09/2017 PSYCHIATRIC PROGRESS NOTE SUBJECTIVE: The patient was seen and spoke with the staff. Per staff, the patient is still very irritable and angry at times, staff splitting. Medication compliant. No other problems or issues. The patient was pleasant, cooperative. She was in her room on the bed. She reports feeling better. She denied depressed mood, hopelessness and helplessness. Denied any other neurovegetative signs and symptoms of depression. She denied any side effect from the medication also. MENTAL STATUS EXAMINATION: Pleasant, cooperative, described her mood as "better." Affect, mood congruent, bright. Thought process goal directed. No flight of ideas, loosening of association. She denied auditory or visual hallucination. No delusion or paranoia noted. She denied suicidal ideation, intent or plan. She also denied any homicidal ideation, intent or plan. Insight and judgment fair. PLAN: 1. Continue current medication and care. 2. Encourage activity in groups. 3. Continue 1:1 therapy, psychoeducation and coping skill. 4. Final medication management and discharge planning by the regular team. EMY DENNISON MD CM:PNTRANS 10 02 EMY DENNISON MD 09/09/172101 interface
--- NOTE | ~2017-08-29 | PR ---
[place], [place] PROGRESS NOTE NAME: ANTOINETTE MILLER UNIT #: [id number] ROOM: 315 DOCTOR: PINKY MÉNDEZ MD BIRTHDATE: [birth year] DOS: 09/03/2017 CHIEF COMPLAINT: "I am just not getting better. I am just so anxious inside. I don't know what to do." SUMMARY OF THE VISIT: The patient was interviewed first in the dining area as she was completing her breakfast and then later again she called me aside to talk to her in the group therapy room. She reports ongoing free floating anxiety that is persistent throughout the day, which culminates in her becoming increasingly depressed and despondent and openly crying throughout most of the day as well. She reports no side effects from the medications. She continues to be somewhat problematic in that she has staff splitting. She is also mixing past medication regimens with current medication regimens. I did discuss with her my plan to simultaneously increase several of the medicines and she nodded in approval. MENTAL STATUS: She is alert and oriented with time gaps. Mood does seem to be still depressed with anxious overtones. There is some mood lability and impulsivity noted. There are no gross psychotic symptoms. Memory has some gaps. PLAN: I will increase buspirone to 15 mg 4 times a day, increase Xanax to 1 mg 4 times a day, increase Neurontin to 300 mg 4 times a day. She will remain on hydroxyzine 50 mg 4 times a day. It is my hope that with this combination of medications being given frequently that they will impact each other positively helping control her anxiety. The BuSpar at higher doses has antidepressant efficacy. I have instructed staff to give her a printout of her current medications and help her reorient to this so that she knows what her current meds are versus what her past medicines were. Staff is also to try to work with her in pairs, so as not to be able to have her engage in significant staff splitting anymore. We will continue to engage her in individual and farr milieu activity, returning to the least restrictive environment when psychiatrically stable. [place], [place] PROGRESS NOTE NAME: ANTOINETTE MILLER UNIT #: [id number] ROOM: 315 DOCTOR: PINKY MÉNDEZ MD BIRTHDATE: [birth year] PINKY MÉNDEZ MD CM:ANGELA [phone] PINKY MÉNDEZ MD 09/03/17 1019 interface
--- NOTE | ~2017-08-29 | PR ---
[place], [place] PROGRESS NOTE NAME: ANTOINETTE MILLER UNIT #: [id number] ROOM: 315 DOCTOR: PINKY MÉNDEZ MD BIRTHDATE: [birth year] DOS: 09/02/2017 CHIEF COMPLAINT: "Oh, there is no hope, I am never going to get better, things will always be the same." SUMMARY OF THE VISIT: The patient was interviewed as she sat on her bed. She was sobbing as I entered the room. She reports that she is continuing to have continual anxiety and depression. She did not sleep well last night, getting up multiple times. She was able to fall asleep though fairly quickly. She continues to report that she is not having side effects, although the nurses report episodically noting that she is excessively sedate. MENTAL STATUS: She is alert and oriented. She does seem somewhat disjointed in her thinking and mixes and matches current events with past events. She is outwardly depressed and crying. There is no nathaly, hypomania or psychosis. Short term memory does have some gaps. PLAN: I will check a serum ammonia level today and a Neurontin level in the morning. I will discontinue her Trilafon, trying to lessen the use of antipsychotics at this point, maintain the Vraylar because it will have mood stabilizing properties. I will re-add hydroxyzine 50 mg 4 times daily to help augment the BuSpar and the Xanax, engage her in individual and farr milieu activity with the plan then to return to the least restrictive environment when psychiatrically stable. PINKY MÉNDEZ MD CM:PNTRANS [phone] PINKY MÉNDEZ MD 09/02/17 1132 interface
--- NOTE | ~2017-08-29 | PR ---
[place], [place] PROGRESS NOTE NAME: ANTOINETTE MILLER UNIT #: [id number] ROOM: [id number] DOCTOR: EMY DENNISON MD BIRTHDATE: [birth year] DOS: 09/08/2017 SUBJECTIVE: The patient seen and I spoke with the staff. Per staff, the patient is irritable, labile, med seeking. She slept well, taking her medication regularly. The patient was now in her room on the bed. When I asked her how she is doing, she said that she is doing good because she had a good breakfast, although she did not like the coffee. She did not express any other problems or concerns. She said that the medication is helping her. She reports good sleep and appetite. MENTAL STATUS EXAMINATION: Pleasant, cooperative. Describes her mood as "good." Affect, mood congruent. Thought process goal directed. No flight of ideas or loosening of association. She denied auditory or visual hallucination. No delusion or paranoia noted. She denied suicidal ideation, intent or plan. She also denied homicidal ideation, intent or plan. PLAN: 1. Continue current medication and care. 2. Continue redirection. 3. Encourage activity and groups. 4. Medication management and discharge plan by the regular team. EMY DENNISON MD CM:PNTRANS 03 EMY DENNISON MD 09/09/1732 interface
[2017-08-29 20:02] VITALS: BP 124/70
[~2017-08-29 20:02] MED LIST: ALBUTEROL4 MG PO; AMINOPHYLLIN200 MG PO; ATARAX,VISTARIL50 MG PO; BUSPIRONE HCL10 MG PO; CETIRIZINE5 MG PO; CYMBALTA60 MG PO; DULOXETINE HCL60 MG PO; LASIX20 MG PO; Lopressor25 MG PO; NEURONTIN300 MG PO; OMEPRAZOLE40 MG PO; POTASSIUM CHLO10 MEQ PO; ROZEREM8 MG PO; SINGULAIR10 M1 PO; TESSALON PERLE100 MG PO; TRAZODONE50 MG PO; TRIFLUOPERAZINE2 M1 PO; VISTARIL25 MG PO; VITAMIN D5000 UNI1 PO; VRAYLAR6 MG PO; XANAX0.5 MG PO; ZESTRIL,PRINIVIL5 MG PO; ZOCOR20 MG PO
[2017-08-29 20:33] LABS: BASO # 0.1 10*3/uL (0.0-0.1); BASO % 0.9 % (0.0-1.0); EOS # 0.3 10*3/uL (0.0-0.4); EOS % 4.7 % (1.0-4.0); HEMATOCRIT 42.2 % (37.0-47.0); HEMOGLOBIN 13.6 g/dl (12.0-16.0); LYMPH # 2.4 10*3/uL (1.3-4.4); LYMPH % 36.7 % (27.0-41.0); MEAN CELL VOLUME 83.2 fl (81.0-99.0); MEAN CORPUSCULAR HGB 26.8 pg (27.0-31.0); MEAN CORPUSCULAR HGB CONC 32.2 g/dl (33.0-37.0); MEAN PLATELET VOLUME 10.2 fl (9.6-12.3); MONO # 0.6 10*3/uL (0.1-1.0); MONO % 8.6 % (3.0-9.0); NEUT # 3.2 10*3/uL (2.3-7.9); NEUT % 48.9 % (47.0-73.0); PLATELET COUNT AUTOMATED 198 10*3/uL (130-400); RED BLOOD COUNT 5.07 10*6/uL (4.10-5.10); RED CELL DISTRI WIDTH 14.6 % (0-14.5); WHITE BLOOD COUNT 6.6 10*3/uL (4.8-10.8)
[2017-08-29 20:33] LABS: BILIRUBIN NEGATIVE (NEGATIVE); BLOOD NEGATIVE (NEGATIVE); CLARITY SL CLOUDY (CLEAR); COLOR YELLOW (YELLOW); GLUCOSE NEGATIVE (NEGATIVE); KETONE TRACE (NEGATIVE); LEUKO ESTERASE 2+ (NEGATIVE); NITRITE NEGATIVE (NEGATIVE); PH 5.5 (5.0-9.0)
[2017-08-29 20:41] LABS: URINE AMPHETAMINES < 1000 (1000ng/ml); URINE BARBITURATES < 200 (200ng/ml); URINE BENZODIAZEPINES > 200 (200ng/ml); URINE CANNABINOIDS (THC) < 50 (50ng/ml); URINE COCAINE < 300 (300ng/ml); URINE METHADONE < 300 (300ng/ml); URINE OPIATES < 300 (300ng/ml)
[2017-08-29 20:42] LABS: BACTERIA 1+; URINE PHENCYCLIDINE < 25 (25ng/ml)
[2017-08-29 20:44] LABS: WBC 51-100 wbc/hpf (0-5)
[2017-08-29 20:47] LABS: ALKALINE PHOSPHATASE 114 U/L (45-117); BUN 20 mg/dl (7-24); CHLORIDE 108 mmol/L (98-107); CREATININE 1.25 mg/dL (0.55-1.02); POTASSIUM 3.6 mmol/L (3.5-5.1); SGOT/AST 28 IU/L (3-35); SGPT/ALT 36 U/L (12-78); SODIUM 143 mmol/L (136-145); TOTAL PROTEIN 7.8 gm/dL (6.4-8.2)
[2017-08-29 20:50] LABS: ACETAMINOPHEN (TYLENOL) < 2.0 ug/ml (10-30); ETHYL ALCOHOL < 3.0 mg/dl (<3)
[2017-08-29 21:12] VITALS: BP 104/68
[2017-08-29 22:13] VITALS: BP 111/73
[2017-08-29] MEDS ORDERED: FLECAINIDE ACET50 M1 PO (22:29)
[2017-08-29] MEDS ORDERED: TRIFLUOPERAZINE2 M1 PO (22:30)
[2017-08-29] MEDS ORDERED: BENZTROPINE MESY1 MG PO (22:32)
[2017-08-29] MEDS ORDERED: REMERON15 M2 PO (22:34)
[2017-08-29] MEDS ORDERED: BUSPIRONE10 MG PO (22:36)
[2017-08-29] MEDS ORDERED: XANAX1 MG PO (22:38)
[2017-08-29] MEDS ORDERED: AMBIEN5 MG PO (22:41)
[2017-08-29] MEDS ORDERED: ZANAFLEX4 M1 PO (22:42)
[2017-08-29] MEDS ORDERED: SYNTHROID25 MCG PO (22:43)
[2017-08-29] MEDS ORDERED: ATIVAN1 MG PO (22:43)
[2017-08-29] MEDS ORDERED: ATIVAN2 MG/1 ML IM (22:44)
[2017-08-29] MEDS ORDERED: GEODON20 MG IM (22:45)
[2017-08-29] MEDS ORDERED: WATER FOR INJECT5 ML IM (22:46)
[2017-08-29] MEDS ORDERED: OXYCODONE HCL5 M1 PO (22:52)
[2017-08-30 07:48] LABS: THYROID STIM HORMONE (HS) 1.43 uIU/ml (0.358-4.75)
[2017-08-30 07:55] VITALS: BP 154/73
[2017-08-30 09:42] LABS: VITAMIN D, 25-HYDROXY 23.4 ng/mL (30-100)
[2017-08-30 20:15] VITALS: BP 114/66
[2017-08-31 07:40] VITALS: BP 110/62; BP 124/70
[2017-08-31 08:38] LABS: BUN 13 mg/dl (7-24); CHLORIDE 106 mmol/L (98-107); CREATININE 0.97 mg/dL (0.55-1.02); POTASSIUM 3.8 mmol/L (3.5-5.1); SODIUM 142 mmol/L (136-145)
[2017-08-31 19:40] VITALS: BP 106/62
[2017-09-01 08:21] VITALS: BP 109/75
[2017-09-01 20:40] VITALS: BP 110/70
[2017-09-02 07:43] VITALS: BP 114/72
[2017-09-02 19:55] VITALS: BP 116/74
[2017-09-03 07:56] VITALS: BP 112/65
[2017-09-03 20:00] VITALS: BP 108/65
[2017-09-04 07:56] VITALS: BP 112/76
[2017-09-04 08:28] VITALS: BP 130/80
[2017-09-04 20:00] VITALS: BP 106/88
[2017-09-05 07:34] VITALS: BP 110/68
[2017-09-05 19:56] VITALS: BP 118/62
[2017-09-06 07:51] VITALS: BP 115/70
[2017-09-06 19:11] VITALS: BP 125/60
[2017-09-07 08:09] VITALS: BP 105/70
[2017-09-07 15:30] LABS: BASO % 0.7 % (0.0-1.0); EOS # 0.2 10*3/uL (0.0-0.4); EOS % 3.7 % (1.0-4.0); HEMATOCRIT 39.7 % (37.0-47.0); HEMOGLOBIN 12.9 g/dl (12.0-16.0); LYMPH # 2.1 10*3/uL (1.3-4.4); LYMPH % 35.1 % (27.0-41.0); MEAN CELL VOLUME 82.5 fl (81.0-99.0); MEAN CORPUSCULAR HGB 26.8 pg (27.0-31.0); MEAN CORPUSCULAR HGB CONC 32.5 g/dl (33.0-37.0); MEAN PLATELET VOLUME 10.1 fl (9.6-12.3); MONO # 0.5 10*3/uL (0.1-1.0); MONO % 8.7 % (3.0-9.0); NEUT % 51.6 % (47.0-73.0); PLATELET COUNT AUTOMATED 164 10*3/uL (130-400); RED BLOOD COUNT 4.81 10*6/uL (4.10-5.10); RED CELL DISTRI WIDTH 14.7 % (0-14.5); WHITE BLOOD COUNT 5.9 10*3/uL (4.8-10.8)
[2017-09-07 15:48] LABS: ALBUMIN 3.5 gm/dl (3.1-4.5); ALKALINE PHOSPHATASE 97 U/L (45-117); BUN 11 mg/dl (7-24); CHLORIDE 111 mmol/L (98-107); CREATININE 0.87 mg/dL (0.55-1.02); POTASSIUM 4.3 mmol/L (3.5-5.1); SGOT/AST 26 IU/L (3-35); SGPT/ALT 37 U/L (12-78); SODIUM 143 mmol/L (136-145)
[2017-09-07 20:25] VITALS: BP 117/72
[2017-09-07 21:45] VITALS: BP 110/72
[2017-09-08 06:42] VITALS: BP 108/68
[2017-09-08 08:00] VITALS: BP 112/65
[2017-09-08 20:00] VITALS: BP 102/69
[2017-09-09 07:00] VITALS: BP 118/66
[2017-09-09 08:52] VITALS: BP 109/76
[2017-09-09 14:45] LABS: BILIRUBIN NEGATIVE (NEGATIVE); BLOOD TRACE-LYSED (NEGATIVE); CLARITY SL CLOUDY (CLEAR); COLOR YELLOW (YELLOW); GLUCOSE 3+ (NEGATIVE); KETONE NEGATIVE (NEGATIVE); LEUKO ESTERASE 2+ (NEGATIVE); NITRITE POSITIVE (NEGATIVE); SPECIFIC GRAVITY <= 1.005 (1.005-1.030); UROBILINOGEN 0.2 E.U./dl (0.2-1.0)
[2017-09-09 15:21] LABS: BACTERIA 3+; EPITHELIAL CELLS 0-2; WBC TNTC wbc/hpf (0-5)
[2017-09-09 20:26] VITALS: BP 103/80
[2017-09-10 06:28] VITALS: BP 138/78
[2017-09-10 07:32] VITALS: BP 115/74
[2017-09-10 20:00] VITALS: BP 104/71
[2017-09-11 08:54] VITALS: BP 120/62
[2017-09-11 19:14] VITALS: BP 113/61
[2017-09-12 06:45] VITALS: BP 117/71
[2017-09-12] MEDS ORDERED: GABAPENTIN800 MG PO (07:59)
[2017-09-12] MEDS ORDERED: OXYCODONE HCL5 M1 PO (08:02)
[2017-09-12] MEDS ORDERED: MIRTAZAPINE15 M2 PO (11:01)
[2017-09-12] MEDS ORDERED: VRAYLAR6 MG PO (11:01)
[2017-09-12] MEDS ORDERED: TRIHEXYPHENIDYL2 M3 PO (11:01)
[2017-09-12] MEDS ORDERED: ATARAX,VISTARIL50 MG PO (11:01)
[2017-09-12] MEDS ORDERED: BUSPAR15 MG PO (11:01)
[2017-09-13 08:20] LABS: NEURONTIN (GABAPENTIN) 16.4 ug/mL (4.0-16.0)
[2017-09-13] MEDS ORDERED: GABAPENTIN800 MG PO (15:46)
== END 2017-09-12 13:05 | disposition home or self-care (01) | DRG 885 ==
LOC: ED 20:02 → 3N 21:44
PROVIDERS: Internal Medicine; Nurse Practitioner Family; Psychiatry & Neurology Psychiatry
DX: F31.12 Bipolar disorder, current episode manic without psychotic features, moderate (principal); D72.1 Eosinophilia; E87.8 Other disorders of electrolyte and fluid balance, not elsewhere classified; E66.01 Morbid (severe) obesity due to excess calories; G62.9 Polyneuropathy, unspecified; N39.0 Urinary tract infection, site not specified; F34.1 Dysthymic disorder; E03.9 Hypothyroidism, unspecified; E78.5 Hyperlipidemia, unspecified; J45.909 Unspecified asthma, uncomplicated; F41.1 Generalized anxiety disorder; E55.9 Vitamin D deficiency, unspecified; M54.5 Low back pain; B96.20 Unspecified Escherichia coli [E. coli] as the cause of diseases classified elsewhere; I10 Essential (primary) hypertension; K21.9 Gastro-esophageal reflux disease without esophagitis; Z88.8 Allergy status to other drugs, medicaments and biological substances; Z79.899 Other long term (current) drug therapy; Z90.710 Acquired absence of both cervix and uterus; Z90.89 Acquired absence of other organs; Z90.49 Acquired absence of other specified parts of digestive tract; Z82.49 Family history of ischemic heart disease and other diseases of the circulatory system; Z80.1 Family history of malignant neoplasm of trachea, bronchus and lung; Z83.3 Family history of diabetes mellitus; Z68.32 Body mass index [BMI] 32.0-32.9, adult